=== PATIENT | male | born 1945 | race Caucasian/White ===

== ENCOUNTER 2016-05-30 10:45 | Emergency (ER) | payer MEDICARE, OTHER ==
--- NOTE | 2016-05-30 13:05 | ER NURSING DOCUMENTATION ---
Nurse's Notes [facility] Name:Anoop Bryan Age:70 yrs Sex:Male :1945 Arrival Date:05/30/2016 Time:10:45 Bed3 Private MD:Sonu Lazo Diagnosis:Constipation Presentation: 05/30 11:24 Presenting complaint: Patient states: No BM for one week On narcotic meds s/p shoulder ma surgery 6 days ago Generalzed abd cramping. Transition of care: Home. 11:24 Acuity: CARON 3 ri 11:24 Method Of Arrival: Private Vehicle ri Triage Assessment: 11:27 General: Appears uncomfortable, Behavior is cooperative. Pain: Complains of pain in ma umbilical area, right upper quadrant, left upper quadrant, right lower quadrant and left lower quadrant. GI: Abdomen is distended, Bowel sounds present X 4 quads. Soft and tender through out. Historical: - Allergies: No known drug Allergies; - Home Meds: 1. Aspirin Oral 2. Cyclobenzaprine Oral 3. Oxycodone HCl Oral 4. OxyContin Oral 5. Miralax Oral - PSHx: Bilat shoulder surgery; - Tetanus: unknown. - Ebola Screening: : No symptoms or risks identified at this time. . - Immunization history: Flu Vaccine < 1 year. - Social history: Smoking status: Patient states was never smoker of tobacco. Patient uses alcohol on a daily basis. Screenin:29 Infectious Disease Risk None. Abuse screen: Denies threats or abuse. Nutritional ma screening: No deficits noted. Assessment: 12:25 Reassessment: Pt onto toilet and passes large amount soft stool and voids States is ma feeling better. Vital Signs: 11:28 BP 145 / 76; Pulse 76; Resp 14; Temp 98.2; Pulse Ox 89% on R/A; Weight 81.65 kg; Height ma 5 ft. 10 in. (177.80 cm); Pain 6/10; 11:28 Body Mass Index 25.83 (81.65 kg, 177.80 cm) ri ED Course: 10:50 Oxygen Oxygen administration via nasal cannula @ 3L/min. ma 11:20 Patient arrived in ED. arc 11:21 Sonu Lazo MD is Private Physician. arc 11:24 Abuso, Tiffany, RN is Primary Nurse. ma 11:25 Triage completed. ma 11:27 Sunny Yuan MD is Attending Physician. tl1 11:29 Valuables Remains with patient Patient has correct armband on for positive ma identification. Placed in gown. Bed in low position. Call light in reach. Side rails up X2. Pulse Ox - RN Monitoring Only NIBP On - RN Monitoring Only. 11:44 Patient moved to radiology. pm1 12:05 Patient moved back from radiology. pm1 12:20 Bladder Scan performed. ma 12:51 Sonu Lazo MD is Referral Physician. tl1 Administered Medications: No medications were administered Outcome: 12:52 Discharge ordered by . tl1 13:01 Discharged to home ma 13:01 Condition: stable 13:01 Instructed on discharge instructions, follow up and referral plans. 13:04 Patient left the ED. 05/31 09:05 Discharge F/U Call: Spoke with: patient. What is the one thing you feel we could do st to improve? Patient's answer: pt has had a BM is taking MiraLax and a softener and is feeling better today. Signatures: Sonia Wilkerson, RN Tiffany Pleitez RN RN ma Friel, Nicole, RN RN Chidi Hoyos pm1 Sunny Yuan MD MD tl1 Elise Gentile, Reg Reg arc
--- NOTE | 2016-05-30 13:05 | ER PHYSICIAN DOCUMENTATION ---
Physician Documentation [facility] Name:Anoop Bryan Age:70 yrs Sex:Male :1945 Arrival Date:05/30/2016 Time:10:45 Bed3 Private MD:Sonu Lazo EDliaSunny Disposition: 05/30 14:00 Chart complete. tl1 Disposition: 05/30/16 12:52 Discharged to Home/Self Care. Impression: Constipation. - Condition is Good. - Discharge Instructions: CONSTIPATION (Adult). - Medical Reconciliation form form. - Follow up: Sonu Lazo MD; When: As needed; Reason: Recheck today's complaints, Continuance of care. - Problem is new. - Symptoms are resolved. HPI: 11:28 This 70 yrs old Male presents to ER via Private Vehicle with complaints of tl1 Abdominal Pain. 11:28 Right shoulder surgery 6 days ago at [facility]. Taking percocet since. Has tl1 not had aBM since, despite taking miralax for the last 2 days. Now with diffuse crampy lower abdominal pain, difficulty urinating (hesitancy, weak stream), and urgency to have a BM, but unable to do so. He was incontinent suddenly of liquid stool just after arrival here. No f/c/s/m/h/h.. Historical: - Allergies: No known drug Allergies; - Home Meds: 1. Aspirin Oral 2. Cyclobenzaprine Oral 3. Oxycodone HCl Oral 4. OxyContin Oral 5. Miralax Oral - PSHx: Bilat shoulder surgery; - Tetanus: unknown. - Ebola Screening: : No symptoms or risks identified at this time. . - Immunization history: Flu Vaccine < 1 year. - Social history: Smoking status: Patient states was never smoker of tobacco. Patient uses alcohol on a daily basis. ROS: 11:30 Abdomen/GI: Positive for abdominal pain, nausea, diarrhea, abdominal cramps, abdominal tl1 distension, anorexia. Exam: 11:30 Constitutional: The patient appears alert, awake, well developed, well nourished, in tl1 obvious distress, moderately distressed. 11:30 Head/face: Exam is negative for acute changes. 11:30 Eyes: Exam is negative for acute changes. 11:30 Cardiovascular: Rate: normal, Rhythm: regular, Heart sounds: normal. 11:30 Respiratory: the patient does not display signs of respiratory distress, Respirations: normal, Breath sounds: are normal. 11:30 Abdomen/GI: Inspection: distension, that is mild, Bowel sounds: hyperactive, Palpation: soft, moderate abdominal tenderness, in the right lower quadrant and left lower quadrant, rebound tenderness, is not appreciated, voluntary guarding, is not appreciated, no appreciated organomegaly, Rectal exam: Prostate: normal, rectal tone normal, Stool: brown, guaiac negative, tenderness, is not appreciated, Hard stool c/w impaction. Vital Signs: 11:28 BP 145 / 76; Pulse 76; Resp 14; Temp 98.2; Pulse Ox 89% on R/A; Weight 81.65 kg; Height ma 5 ft. 10 in. (177.80 cm); Pain 6/10; 11:28 Body Mass Index 25.83 (81.65 kg, 177.80 cm) ma MDM: 11:27 Patient medically screened. tl1 12:30 Differential diagnosis: bowel obstruction, fecal impaction. Data reviewed: vital signs, tl1 nurses notes, radiologic studies, plain films, and as a result, I will discharge patient. Test interpretation: by ED physician or midlevel provider: plain radiologic studies. Counseling: I had a detailed discussion with the patient and/or guardian regarding: the historical points, exam findings, and any diagnostic results supporting the discharge/admit diagnosis, radiology results, the need for outpatient follow up, to return to the emergency department if symptoms worsen or persist or if there are any questions or concerns that arise at home. ED course: Shortly after he arrived in the ED he had a series of large bowel movements which led to a complete resolution of his symptoms. Exam just prior to d/c showed a completely non-tender abdomen. Abdominal films, taken after his multiple BMs showed little if any stool and a non specific bowel gas problem. 05/31 22:43 ED course: . tl1 05/30 11:33 Order name: Bladder Scan by RN; Complete Time: tl1 05/30 11:43 Order name: Oxygen; Complete Time: : ma Dispensed Medications: No medications were administered Signatures: Abuso, Tiffany, RN RN ma Ita, Jo, RN RN nf Lissy, Sunny, MD MD tl1
--- NOTE | 2016-06-01 17:17 | RADIOLOGY REPORT ---
A single view of the chest demonstrates the heart, vessels and lungs to be unremarkable. No infiltrate, fluid or pneumothorax is seen. Views of the abdomen demonstrate a normal bowel gas pattern. No pathologic calcifications or free air are identified. IMPRESSION: No acute chest or abdomen abnormality is identified. MTDD
== END 2016-05-30 13:05 | disposition home or self-care (01) ==
LOC: ER 10:45
DX: K59.03 Drug induced constipation (principal); T40.605A Adverse effect of unspecified narcotics, initial encounter; Z79.899 Other long term (current) drug therapy; Z79.82 Long term (current) use of aspirin
CPT/HCPCS: 74022; 99284